=== PATIENT | female | born 1995 | race African-American/Black ===

== ENCOUNTER → 2022-02-16 16:24 | Outpatient (CLI) | payer OTHER, SELFPAY ==
--- NOTE | 2022-02-16 | DI.MRI.S_ITS ---
PROCEDURE: MR HEAD/BRAIN WO/W CON INDICATIONS: Papilledema of both eyes TECHNIQUE: Noncontrast sagittal T1 spin echo, axial T2 fast spin echo, axial FLAIR, axial gradient echo, axial diffusion and ADC through the brain. Axial/sagittal/coronal 3-D CISS, thin-slice axial T1 spin echo with fat saturation through the skull base. After the administration of contrast, axial and coronal thin-slice T1 spin echo with fat saturation through the orbits, axial and coronal and sagittal T1 spin echo with fat saturation through the brain. COMPARISON: None. FINDINGS: Image quality: Excellent. Orbits: The globes demonstrate a normal, symmetric appearance. No posterior globe flattening can be seen. The optic nerves demonstrate an unremarkable appearance, without abnormal fluid along their courses. No findings of masses or enhancement can be seen within the orbits. Olecranon glands are within normal limits. CSF spaces: Ventricles are normal in size and shape. No extra-axial fluid collections. Basal cisterns are patent. Brain: No intracranial bleeds or mass effects. No abnormal intracranial enhancement. Diffusion weighted images show no acute ischemic insults. Suresh-white matter interface is intact. Brainstem is normal. Normal intravascular flow voids are present. Note is made of a partially empty sella, with the pituitary tissue partially flattened along the floor of the sella turcica. Skull and face: Calvarial marrow signal is normal. Orbits appear normal. Sinuses: Sinuses and mastoids appear clear. IMPRESSION: Normal appearing globes, without abnormal flattening posteriorly. No abnormal fluid can be seen involving the optic nerves. Partially empty sella noted, which can be seen in patients with intracranial hypertension. Dictated by: Chris Garcia M.D. on 02/16/2022 at 17:12 Approved by: Chris Garcia M.D. on 02/16/2022 at 17:13
--- NOTE | 2022-02-16 | DI.MRI.S_ITS ---
PROCEDURE: MR ANGIO HEAD WO/W CON INDICATIONS: Papilledema of both eyes TECHNIQUE: Noncontrast axial 3-D [id number] MR angiogram, with 3-dimensional maximum intensity projection (MIP) reformats of the internal carotid arteries and posterior circulation then performed. In this patient, venous imaging was also acquired. COMPARISON: [facility], , MR HEAD/BRAIN WO/W CON, 02/16/2022, 16:58. FINDINGS: Image quality: Excellent. Anterior circulation: Intracranial internal carotid arteries demonstrate normal size and intraluminal flow signal. Apparent focal narrowing can be seen involving the left distal A1 segment. The flow within the paired anterior cerebral arteries is otherwise normal and symmetric. The flow within the middle cerebral arteries is normal and symmetric. The anterior communicating artery is seen. No occlusions or aneurysms. Posterior circulation: The distal right V4 segment largely terminates in the right posterior inferior cerebellar artery. The left V4 segment is within normal limits. There is a apparent generalized narrowing of the proximal basilar artery. The flow within the posterior cerebral arteries is normal and symmetric. No occlusions or aneurysms. The included venous imaging demonstrates patent superior and straight sinuses. There is narrowing seen on both distal transverse sinuses. The sigmoid sinuses are within normal limits. IMPRESSION: There are apparent areas of arterial narrowing. However, these are felt most likely to be artifactual. If clinically appropriate, a follow-up CT angiogram could be considered for further evaluation. There are areas of focal narrowing seen involving the distal transverse venous sinuses on both sides. This finding can be seen in patients with intracranial hypertension. Dictated by: Chris Garcia M.D. on 02/16/2022 at 17:03 Approved by: Chris Garcia M.D. on 02/16/2022 at 17:07
== END ==
PROVIDERS: Referring Provider Specialist; Visit Provider Specialist
DX: H47.10 Unspecified papilledema (principal)
CPT/HCPCS: 70546; 70553